=== PATIENT | female | born 1985 | race Caucasian/White ===

== ENCOUNTER 2017-06-13 19:19 | Emergency (ER) | payer OTHER ==
[~2017-06-13] VITALS: Ht 162.6 cm; Wt 77.1 kg
[~2017-06-13 19:19] MED LIST: BACTRIM DS TABL1 TA1 PO; CELEXA PO; FLOMAX0.4 M1 DOB; NO MEDICATIONS; PERCOCET5/325 PO; VOLTAREN75 MG PO
[2017-06-13] MEDS ORDERED: NO MEDICATIONS (19:29)
[2017-06-13 20:01] LABS: URINE SOURCE CLEAN CATCH
[2017-06-13 20:05] LABS: URINE APPEARANCE HAZY; URINE BILIRUBIN NEG (NEG); URINE BLOOD 2+ (NEG); URINE COLOR YELLOW; URINE KETONE NEG (NEG); URINE LEUKOCYTE ESTERASE 3+ (NEG); URINE NITRATE POS (NEG); URINE PROTEIN 1+ (NEG); URINE SPECIFIC GRAVITY 1.025 (1.003-1.035)
[2017-06-13 20:07] LABS: URINE GLUCOSE 50 MG/DL (NORM)
[2017-06-13 20:08] LABS: MICRO INDICATED? YES
[2017-06-13 20:10] LABS: CULTURE INDICATED? YES; URINE TRANSITIONAL EPI CELLS FEW /[HPF]; URINE WBC 25-50 /[HPF] (0-5)
[2017-06-13 20:11] LABS: URINE BACTERIA 2+ (NEG); URINE MUCUS PRESENT; URINE SQUAMOUS EPITHELIAL CELL MODERATE /[HPF]; URINE TRICHOMONAS PRESENT
[2017-06-16 00:47] LABS: CHLAMYDIA TRACH Not Detected (Not Detected); N GONOR Not Detected (Not Detected)
== END 2017-06-13 20:39 | disposition home or self-care (01) ==
LOC: SED 19:19
PROVIDERS: Physician Assistant Medical
DX: A59.01 Trichomonal vulvovaginitis (principal); N39.0 Urinary tract infection, site not specified; F17.200 Nicotine dependence, unspecified, uncomplicated
CPT/HCPCS: 81003; 84703; 87086; 87210; 87491; 87591; 87808; 87905; 99283